=== PATIENT | male | born 1985 | race Caucasian/White ===

== ENCOUNTER 2016-10-14 19:26 | Emergency (ER) | payer MEDICAID, OTHER ==
--- NOTE | 2016-10-14 20:06 | ERNOTE ---
<EdeBurke - Last Filed: 10/15/16 07:47> Psychological HPI - Date Date of Service: 10/14/16 - n - General Chief Complaint: Psychiatric Problem Source: Reports: patient Exam Limitations: Reports: clinical condition - is likely unreliable historian. - Immun/Allergies/Home Medications Allergies/Adverse Reactions: Allergies Tetanus Vaccines and Toxoid [Tetanus Vaccines & Toxoid] Allergy (Unknown, Verified 10/14/16 19:45) Home Medications: HOME MEDICATIONS Bupropion HCl [Wellbutrin Xl] 300 mg PO DAILY 10/14/16 [Last Taken Unknown] Clonidine HCl [Clonidine HCl ER] 0.1 mg PO HS 10/14/16 [Last Taken Unknown] Methylphenidate HCl [Concerta] 18 mg PO DAILY 10/14/16 [Last Taken Unknown] - History of Present Illness Narrative: PT HAS A HX OF DEPRESSION AND IS TREATED ELSEWHERE WITH A HISTORY THAT HE WAS IN [place] IN PT. PSYCH LAST WEEK GETTING OUT FIVE DAYS AGO AND MOVING TO [facility] HE TOLD R.NHaresh TO AVOID DRUG DEALERS IN [place] THAT HE HAD ' called out" ON FACEBOOK. HE LEARNED OF SOME OUT PT. PROGRAM OFFERED BY THE [facility] IN [place] AND IN THE PROCESS OF TRYING TO FIND THEIR HOSPITAL HE SOMEHOW ENEDED UP IN A BATHROOM IN A PARK THERE WHERE POLICE WERE CALLED. NORBERT MOREJON DISCOVERED HE HAD A WARRANT IN [facility] AND BROUGHT HIM HERE . [facility] JAILED HIM BRIEFLY BUT LET HIM GO. HE HAD NO WAY TO GET HOME . HE WALKED HERE AND NOW DEMANDS WE GET HIM A RIDE BACK TO [place] OR HE WILL CLAIM HE IS SUICIDAL , WHICH HE HAS ALREADY SAID HE IS NOT, SO THAT WE WILL ADMIT HIM AND TRANSFER HIM BACK TO [place]. I EXPLAINED THAT WE HAVE ABSOLUTELY NO WAY TO TRANSPORT HIM BACK TO [place]. WE ARE TRYING TO CONTACT OR THE [facility] WORKER TO TALK WITH HIM. Review of Systems - Review of Systems Constitutional: Present: See HPI EYE: Present: no symptoms reported ENT: Present: no symptoms reported Respiratory: Present: no symptoms reported Cardiology: Present: no symptoms reported Gastrointestinal/Abdominal: Present: no symptoms reported Genitourinary: Present: no symptoms reported Musculoskeletal: Present: no symptoms reported Skin: Present: no symptoms reported Neurological: Present: emotional problems Endocrine: Present: intolerance to heat Hematologic/Lymphatic: Present: no symptoms reported Psych: Present: See HPI, emotional problems All Other Systems: All systems neg except as marked - Patient's Past Medical History Patient History - Medical: Alcohol Abuse, ADHD, Depression Patient History - Cardiac/Respiratory: Asthma Patient History - Cancer: No Hx of Cancer Patient History - Surgical Procedures: No surgical history Patient History - Other: None - Social History Living Situations: other Psych History: Hx of Depression, Hx of Suicide Attempt, Hx of Psychiatric Tx Smoking Status: Current every day smoker Alcohol Use: rarely Drug Use: meth - Immunizations Immunizations Up to Date: Yes Physical Exam - Physical Exam General Appearance: Present: wd/wn, alert, no apparent distress Eye Exam: Normal inspection: bilateral, PERRL: bilateral, EOMI: bilateral Ears, Nose, Throat: Present: normal ENT inspection Neck: Present: normal inspection, nontender Respiratory: Present: no respiratory distress, normal breath sounds, chest nontender, lungs clear Cardiovascular/Chest: Present: regular rate, rhythm, no murmur Back Exam: Present: normal inspection Extremity Exam: Present: normal inspection Neurological Exam: Present: alert, oriented, normal mood/affect, no motor/ sensory deficits Skin Exam: Present: normal color ED Progress - Results and Orders Patient's Lab Results:: I have reviewed the patient's lab results. Results and Orders: UDS = NEG. - Vital Signs Patient's Vital Signs:: I have reviewed the patient's vital signs. Vital Signs: Vital Signs 10/14/16 19:30 Temperature 36.9 C Pulse Rate 92 Respiratory 18 Rate Blood Pressure 135/77 O2 Sat by Pulse 99 Oximetry - Progress/Reassessment Chief Complaint: Psychiatric Problem - Transfer of Care Physician Sign Out: Burke Mera Receiving Physician: Dee Urrutia Expected Disposition: Discharge - WAITING TO SEE IF HE CAN GET A RIDE THRU [facility]. Plan - Plan Plan: THE R.N. FINALLY WAS ABLE TO REACH INCOME TAX ANALYST [facility] WORKER WHO IS GOING TO TALK WITH HIM. [facility] TALKED WITH PT. THEY WILL TRY TO GET HIM TO A LOCAL RESIDENCE HERE THAT THEY USE AND THAT RESIDENCE HAS TRANSPORTATION CAPABILITY IF HIS DRUG SCREEN IS NEGATIVE. THEY CAN NOT TAKE HIM THERE TONIGHT BECAUSE HE IS MALE AND THEY ONLY HAVE ONE FEMALE AVAILABLE TO TAKE HIM TO THE HOUSE WHICH IS AGAINST THEIR RULES SO HE WILL HAVE TO STAY HERE UNTIL TOMORROW. HIS DRUG SCREEN IS NEGATIVE. Departure Clinical Impression: Depression Qualifiers: Depression Type: unspecified Qualified Code(s): F32.9 - Major depressive disorder, single episode, unspecified - Departure Disposition: Other health care facility Condition: Good <Dee Urrutia - Last Filed: 10/15/16 09:05> ED Progress - Results and Orders Patient's Lab Results:: I have reviewed the patient's lab results. - Vital Signs Patient's Vital Signs:: I have reviewed the patient's vital signs. - Progress/Reassessment Progress Note-Subjective: 10/15/16 09:01 Patient comfortable, denies any acute concerns, denies any suicidal ideation, tolerated breakfast awaiting transfer to [place] [facility] for residential treatment for depression
--- OUTSIDE RECORDS SUMMARY | 2016-10-14 20:55 | XMS REPORT | Continuity of Care Document ---
:1985 Author Organization [facility] ([facility]) Address [address] [place] [address] Phone [phone] Care Team Providers Name Role Phone [phone], Need To Check Primary Care Provider Unavailable Source Comments This disclosure is being made pursuant to the Care Everywhere program, applicable federal and state laws, and may not contain all informaitonavailable regarding this patient.[facility] ([facility]) Active Allergies and Adverse Reactions Allergen Noted Date Severity Reactions Comments Diphtheria Toxoid,Adsorbed Conjunctivitis reacted as a baby, doesn't remember type of reaction Pertussis Vaccine,Adsorbed Conjunctivitis reacted as a baby, doesn't remember type of reaction Tetanus Toxoid, Adsorbed Conjunctivitis reacted as a baby, doesn't remember type of reaction Current Medications Prescription Sig. Disp. Refills Start Date End Date Status cloNIDine HCl 0.1 mg Take 0.1 mg by Active tablet mouth at bedtime. buPROPion (WELLBUTRIN XL) Take 300 mg by Active 300 mg extended release mouth every tablet 24 hour morning. methylphenidate 18 mg CR Take 18 mg by mouth Active tablet every morning. albuterol 2.5 mg/3 mL Use 3 mL by Active inhalation solution inhalation every 4 hours as needed. 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 (Primary Dx) Social History Tobacco Use Types Packs/Day Years Used Date Current Every Day Smoker Smokeless Tobacco: Never Used Alcohol Use Drinks/Week oz/Week Comments Yes 2-3 Cans of beer 1.2 - 1.8 Last Filed Vital Signs Vital Sign Reading Time Taken Blood Pressure 118/62 10/13/2016 12:10 AM CDT Pulse 99 10/13/2016 12:10 AM CDT Temperature 36.8 C (98.2 F) 10/13/2016 12:10 AM CDT Respiratory Rate 18 10/13/2016 12:10 AM CDT Height 1.803 m (5' 11") 10/13/2016 12:10 AM CDT Weight 82.555 kg (182 lb) 10/13/2016 12:10 AM CDT Body Mass Index 25.4 10/13/2016 12:10 AM CDT Oxygen Saturation 93% 10/13/2016 12:10 AM CDT Plan of Care Health Maintenance Due Date Last Done Comments Hepatitis B Vaccine (1 of 3 - Primary Series) 1985 Lipid Disorder Screening 2005 MMR Vaccine 2005 Varicella Vaccine (1 of 2 - Adult - No Evidence of 2005 Immunity) Pneumococcal Vaccine (1 of 1 - PPSV23) 2006 Influenza Vaccine: Seasonal (Season Ended) 2016 Results from Last 3 Months Not on file
[2016-10-14 21:40] LABS: Cocaine Ur Negative (NEGATIVE); Urine Barbiturate Negative (NEGATIVE); Urine Benzodiazepines Negative (NEGATIVE); Urine Opiates Negative (NEGATIVE); Urine PCP Negative (NEGATIVE); Urine THC Negative (NEGATIVE)
[2016-10-15 08:05] VITALS: BP 116/62
== END 2016-10-15 10:26 | disposition short-term general hospital (02) ==
LOC: ER 19:26
DX: F32.9 Major depressive disorder, single episode, unspecified (principal); F17.200 Nicotine dependence, unspecified, uncomplicated; F90.9 Attention-deficit hyperactivity disorder, unspecified type